=== PATIENT | female | born 1995 | race Caucasian/White ===

== ENCOUNTER → 2022-07-19 | Outpatient (CLI) | payer BC | END | disposition home or self-care (01) | LOC: LABWHC1 11:04 | PROVIDERS: ATTEND Obstetrics & Gynecology Obstetrics | DX: O20.0 Threatened abortion (principal); Z3A.00 Weeks of gestation of pregnancy not specified | CPT/HCPCS: 36415; 84702 ==

== ENCOUNTER 2023-03-03 06:13 | Inpatient (IN) | payer OTHER ==
[2023-03-03] MEDS ORDERED: miSOPROStoL 200 MCG TAB PO PRN (06:33)
[2023-03-03] MEDS ORDERED: CARBOPROST TROMETHAMINE 250 MCG/ML 1 ML AMP IM PRN (06:33)
[2023-03-03] MEDS ORDERED: METHYLERGONOVINE 0.2 MG/ML 1 ML AMP IM PRN (06:33)
[2023-03-03] MEDS ORDERED: TERBUTALINE 1 MG/ML VIAL SQ PRN (06:33)
[2023-03-03] MEDS ORDERED: TRANEXAMIC ACID IN NACL,ISO-OS 1,000 MG in EMPTY BAG 1 BAG IV PRN (06:33)
[2023-03-03] MEDS ORDERED: OXYTOCIN 10 UNIT/ML 1 ML VIAL IM PRN (06:33)
[2023-03-03] MEDS ORDERED: LIDOCAINE 0.5% (PF) 5 MG/ML (50 ML SDV) SQ PRN (06:33)
[2023-03-03] MEDS ORDERED: OXYTOCIN 30 UNITS/500 ML NS 30 UNIT in SALINE 1 500ML.BAG IV SCH ×2 (06:45→17:15)
[2023-03-03 07:19] LABS: Basophils # (A) 0.1 k/uL (0-0.2); Basophils % (A) 0 %; Eosinophils # (A) 0.1 k/uL (0-0.7); Eosinophils % (A) 1 %; HCT 36.4 % (34.0-46.0); HGB 12.1 gm/dL (11.4-16.0); Lymphocytes # (A) 1.9 k/uL (1.0-4.8); Lymphocytes % (A) 16 %; MCH 30.8 pg (25.0-35.0); MCHC 33.3 g/dL (31.0-37.0); MCV 92.7 fL (80.0-100.0); Mean Platelet Volume 8.6; Monocytes # (A) 0.5 k/uL (0-1.0); Monocytes % (A) 4 %; Neutrophils # (A) 8.8 k/uL (1.3-7.7); Neutrophils % (A) 76 %; Platelet Count 237 k/uL (150-450); RBC 3.93 m/uL (3.80-5.40); WBC 11.6 k/uL (3.8-10.6)
[2023-03-03] MEDS: LACTATED RINGERS 1,000 ML IV SCH ×2 (07:31→11:06)
[2023-03-03 07:50] VITALS: RESP 16
[2023-03-03] MEDS ORDERED: ROPIVACAINE 225 MG, fentaNYL (PF). 450 MCG in SODIUM CHLORIDE 0.9% 171 ML EPIDURAL ONE (11:11)
[2023-03-03] MEDS ORDERED: ROPIVACAINE 5 MG/ML 20 ML AMPULE ONE (11:16)
[2023-03-03] MEDS ORDERED: SODIUM CHLORIDE 0.9% 100 ML BAG ONE (11:16)
[2023-03-03] MEDS ORDERED: fentaNYL (PF) 50 MCG/ML 5 ML AMP ONE (11:16)
[2023-03-03] MEDS ORDERED: diphenhydrAMINE 25 MG CAP PO PRN (17:14)
[2023-03-03] MEDS ORDERED: diphenhydrAMINE 50 MG/ML 1 ML VIAL IVP PRN ×2 (17:14)
[2023-03-03] MEDS ORDERED: SIMETHICONE 80 MG CHEWABLE PO PRN (17:14)
[2023-03-03] MEDS ORDERED: diphenhydrAMINE 50 MG CAP PO PRN (17:14)
[2023-03-03] MEDS ORDERED: ACETAMINOPHEN TAB 325 MG TAB PO PRN (17:14)
[2023-03-03] MEDS ORDERED: LANOLIN CREAM 5 GM TUBE TOPICAL PRN (17:14)
[2023-03-03] MEDS ORDERED: BENZOCAINE/MENTHOL SPRAY 1 GM/SPRAY AEROSOL TOPICAL PRN (17:14)
[2023-03-03] MEDS ORDERED: HYDROCORTISONE 2.5% RECTAL CREAM 30 GM TUBE RECTAL PRN (17:14)
[2023-03-03] MEDS ORDERED: ZOLPIDEM 5 MG TAB PO PRN (17:14)
--- NOTE | 2023-03-03 17:18 | P.HPOB ---
History of Present Illness H&P Date: 03/03/23 Chief Complaint: IUP at 39 and one, single umbilical artery This is a 27-year-old 1 para 0 at 39 and one sevenths weeks that presents to labor and delivery for induction of labor. Patient has been receiving routine care with myself which has been essentially compensated. On 20 week ultrasound a single umbilical artery was appreciated, otherwise normal anatomy was appreciated. Patient does note good movement denies contractions loss of fluid or vaginal bleeding. On bloodwork this patient's blood type of O+, rubella status immune, hepatis B surface antigen negative, HIV negative , RPR nonreactive, group beta strep culture negative. Review of Systems Constitutional: Denies chills, Denies fatigue, Denies fever Ears, nose, mouth and throat: Denies headache Cardiovascular: Reports leg edema Respiratory: Denies dyspnea Gastrointestinal: Denies constipation, Denies diarrhea, Denies nausea, Denies vomiting Genitourinary: Reports Past Medical History Past Medical History: Thyroid Disorder History of Any Multi-Drug Resistant Organisms: None Reported Past Surgical History: No Surgical Hx Reported Past Anesthesia/Blood Transfusion Reactions: No Reported Reaction Past Psychological History: No Psychological Hx Reported Smoking Status: Never smoker Past Alcohol Use History: None Reported Past Drug Use History: None Reported - Past Family History Mother Family Medical History: No Reported History Medications and Allergies Home Medications Medication Instructions Recorded Confirmed Type Aspirin 1 tab PO DAILY 03/03/23 03/03/23 History Levothyroxine Sodium [Synthroid] 50 mcg PO DAILY 03/03/23 03/03/23 History Vit No.179/Iron/Folic 1 tab PO DAILY 03/03/23 03/03/23 History [ Tablet] Allergies Allergy/AdvReac Type Severity Reaction Status Date / Time No Known Allergies Allergy Verified 03/03/23 06:32 Exam Osteopathic Statement: *. No significant issues noted on an osteopathic structural exam other than those noted in the History and Physical/Consult. Vital Signs Temp Pulse Resp BP Pulse Ox 03/03/23 07:47 98.5 F 86 16 122/74 98 Intake and Output 03/02/23 03/03/23 03/03/23 22:59 06:59 14:59 Other: Weight 87.09 kg 87.09 kg Tardive physical exam is performed in this date and title investigator a well-nourished well-developed female in no acute distress, breathing is noted to be nonlabored, heart has a regular rhythm, abdomen is gravid, heart tones are noted to be category 1, she is irineo every 4 minutes, on cervical exam she is 3/70/-2 station amniotomy is performed and clear fluid was obtained. Results Result Diagrams: 03/03/23 06:33 Abnormal Lab Results - Last 24 Hours (Table) 03/03/23 Range/Units 06:33 WBC 11.6 H (3.8-10.6) k/uL Neutrophils # 8.8 H (1.3-7.7) k/uL Assessment and Plan (1) Term Current Visit: Yes Status: Acute Code(s): Z34.90 - ENCNTR FOR SUPRVSN OF NORMAL , UNSP, UNSP TRIMESTER SNOMED Code(s): 69044267 (2) Single umbilical artery Current Visit: Yes Status: Acute Code(s): Q27.0 - CONGENITAL ABSENCE AND HYPOPLASIA OF UMBILICAL ARTERY SNOMED Code(s): 261140020 Plan: 27-year-old at 39 and one sevenths weeks is admitted to labor and delivery for induction of labor. Pitocin induction of labor is begun per hospital protocol. Options for analgesia are discussed including Stadol, nitrous, epidural. Patient states she would like an epidural when appropriate.
--- NOTE | 2023-03-03 17:18 | P.PROBDLV ---
Vaginal Delivery Note - . Vaginal Delivery Note: 27 showed 1 para 0 that presented to labor and delivery at 39 and one sevenths weeks for scheduled induction of labor. Patient has been receiving routine care which is essentially uncomplicated. On routine 20 week ultrasound two-vessel cord was appreciated. Patient underwent and to testing along with growth ultrasounds. Patient was admitted to labor and delivery Pitocin induction of labor was begun per hospital protocol. Patient underwent amniotomy and clear fluid was obtained. Patient quickly became uncomfortable requested epidural placement. Epidural was placed without difficulty by the anesthesia department. Patient progressed through labor eventually feeling pressure and was noted to be completely dilated. Patient was placed in modified lithotomy position and began pushing. With excellent maternal effort patient had delivery of the head followed by the anterior/posterior shoulder, followed by the body. Spontaneous cry was noted at . The umbilical cord was doubly clamped and cut after two-minute delay. The placenta was delivered spontaneously intact with a three-vessel cord being noted. On inspection the patient's vaginal vault a secondary midline laceration was appreciated in addition to a hymenal laceration. These were repaired in usual fashion with 3-0 Rapide. Hemostasis was appreciated after repair. The bladder was drained for 100 mL of clear yellow urine. EBL 200ml The uterus noted be firm and below the umbilicus. All counts were correct 2. Patient and infant tolerated delivery well and are resting comfortably.
[2023-03-03] MEDS: IBUPROFEN 600 MG TAB PO SCH (18:06)
[2023-03-03] MEDS: SENNOSIDES-DOCUSATE SODIUM 1 EACH TAB PO SCH (21:06)
[2023-03-04] MEDS: IBUPROFEN 600 MG TAB PO SCH ×4 (03:32→13:36)
[2023-03-04] MEDS: SENNOSIDES-DOCUSATE SODIUM 1 EACH TAB PO SCH (09:10)
--- NOTE | 2023-03-04 10:09 | P.DS ---
Providers Date of admission: 03/03/23 06:13 Expected date of discharge: 03/04/23 Attending physician: Rena Posadas Primary care physician: [facility] Olivera - Discharge Diagnosis(es) (1) Term Current Visit: Yes Status: Acute (2) Single umbilical artery Current Visit: Yes Status: Acute (3) Status post normal vaginal delivery Current Visit: Yes Status: Acute Hospital Course: this is a 27-year-old 1 now para 1 that presented to labor and delivery at 39 and one sevenths weeks for induction of labor. Patient receiving routine care which is been essentially uncomplicated with the exception of a noted two-vessel cord noted on routine 20 week ultrasound. Patient was admitted to labor and delivery and Pitocin induction of labor was begun. Patient underwent amniotomy clear fluid was obtained. Patient progressed in labor eventually becoming uncomfortable requesting epidural placement. Epidural was placed without difficulty by the anesthesia department. Patient progressed through labor eventually be feeling pressure and was noted to be completely dilated. Patient was placed in modified lithotomy position and had a normal spontaneous vaginal delivery of a viable female infant, weight of 7 lbs. 1 oz. at 1654. Patient did sustain a second-degree midline laceration along with a hymenal tear during delivery. These lacerations were repaired in usual fashion with 3-0 Rapide. Hemostasis was noted after repair was complete. Patient's course has been uneventful. On this day #1 she is ambulating and voiding without difficulty. She is tolerating a regular diet without nausea or vomiting. She states her lochia is minimal to moderate. She is breast-feeding without difficulty. She would like discharge home at 24 hours if is discharged along with her. Patient Condition at Discharge: Good Plan - Discharge Summary New Discharge Prescriptions: No Action Vit No.179/Iron/Folic [ Tablet] 1 tab PO DAILY Levothyroxine Sodium [Synthroid] 50 mcg PO DAILY Aspirin 1 tab PO DAILY Discharge Medication List Aspirin 1 tab PO DAILY 03/03/23 [History] Levothyroxine Sodium [Synthroid] 50 mcg PO DAILY 03/03/23 [History] Vit No.179/Iron/Folic [ Tablet] 1 tab PO DAILY 03/03/23 [History] Follow up Appointment(s)/Referral(s): Rena Posadas DO [Doctor of Osteopathic Medicine] - 4 Weeks Patient Instructions/Handouts: Vaginal Delivery (DC), Vaginal Delivery (GEN) Activity/Diet/Wound Care/Special Instructions: no tub baths or intercourse until 6 weeks . Patient is counseled on bleeding precautions. Patient is to schedule a routine visit in 4 weeks. Should she have any concerns prior to this appointment she is urged to call the office for an appointment. Discharge Disposition: HOME SELF-CARE
[2023-03-04 15:26] VITALS: BP 121/70; PULSE 76; TEMP 98.1
== END 2023-03-04 17:30 | disposition home or self-care (01) | DRG 768 ==
LOC: 4FBP 06:13
PROVIDERS: ADMIT Obstetrics & Gynecology Obstetrics; ATTEND Obstetrics & Gynecology Obstetrics
PROC: 3E033VJ Introduction of Other Hormone into Peripheral Vein, Percutaneous Approach (ICD-10-PCS; principal; 2023-03-03)
PROC: 10E0XZZ Delivery of Products of Conception, External Approach (ICD-10-PCS; principal; 2023-03-03)
PROC: 10907ZC Drainage of Amniotic Fluid, Therapeutic from Products of Conception, Via Natural or Artificial Opening (ICD-10-PCS; principal; 2023-03-03)
PROC: 3E0DXGC Introduction of Other Therapeutic Substance into Mouth and Pharynx, External Approach (ICD-10-PCS; principal; 2023-03-03)
PROC: 0UQK7ZZ Repair Hymen, Via Natural or Artificial Opening (ICD-10-PCS; 2023-03-03)
PROC: 0KQM0ZZ Repair Perineum Muscle, Open Approach (ICD-10-PCS; 2023-03-03)
DX: O70.1 Second degree perineal laceration during delivery (principal); Z37.0 Single live birth; E07.9 Disorder of thyroid, unspecified; O99.284 Endocrine, nutritional and metabolic diseases complicating childbirth; Z3A.39 39 weeks gestation of pregnancy; Z28.310 Unvaccinated for COVID-19; Z79.82 Long term (current) use of aspirin; Z79.890 Hormone replacement therapy; Z79.899 Other long term (current) drug therapy
CPT/HCPCS: 85025; 86850; 86900; 86901; 88307

== ENCOUNTER 2025-05-09 06:00 | Inpatient (IN) | payer BC, OTHER ==
[2025-05-09] MEDS ORDERED: OXYTOCIN 10 UNIT/ML 1 ML VIAL IM PRN (06:46)
[2025-05-09] MEDS ORDERED: CARBOPROST TROMETHAMINE 250 MCG/ML 1 ML AMP IM PRN (06:46)
[2025-05-09] MEDS ORDERED: METHYLERGONOVINE 0.2 MG/ML 1 ML AMP IM PRN (06:46)
[2025-05-09] MEDS ORDERED: TRANEXAMIC 1,000 MG/100ML-NACL 1,000 MG in EMPTY BAG 1 BAG IV PRN (06:46)
[2025-05-09] MEDS ORDERED: TERBUTALINE 1 MG/ML VIAL SQ PRN (06:46)
[2025-05-09 06:57] LABS: Basophils # (A) 0.07 10*3/uL (0.00-0.10); Basophils % (A) 0.6 %; Eosinophils # (A) 0.09 10*3/uL (0.04-0.35); Eosinophils % (A) 0.8 %; HCT 36.5 % (37.2-46.3); HGB 12.3 g/dL (12.0-15.0); Lymphocytes # (A) 2.04 10*3/uL (0.90-5.00); Lymphocytes % (A) 18.7 %; MCH 30.6 pg (27.0-32.0); MCHC 33.7 g/dL (32.0-37.0); MCV 90.8 fL (80.0-97.0); Monocytes # (A) 0.54 10*3/uL (0.20-1.00); Monocytes % (A) 5.0 %; Neutrophils # (A) 7.92 10*3/uL (1.80-7.70); Neutrophils % (A) 72.8 %; Platelet Count 231 10*3/uL (140-440); RBC 4.02 10*6/uL (4.10-5.20); RDW 13.3 % (11.5-14.5); WBC 10.89 10*3/uL (4.50-10.00)
[2025-05-09] MEDS: LACTATED RINGERS 1,000 ML IV SCH (06:59)
[2025-05-09] MEDS: OXYTOCIN 30 UNITS/500 ML NS 30 UNIT in SALINE 1 500ML.BAG IV SCH (07:00)
[2025-05-09] MEDS ORDERED: SODIUM CHLORIDE 0.9% 250 ML BAG ONE (08:53)
[2025-05-09] MEDS ORDERED: fentaNYL (PF) 50 MCG/ML 5 ML AMP ONE (08:53)
[2025-05-09] MEDS ORDERED: ROPIVACAINE 5 MG/ML 30 ML VIAL ONE (08:53)
[2025-05-09] MEDS: LIDOCAINE 0.5% (PF) 5 MG/ML (50 ML SDV) SQ PRN (11:00)
[2025-05-09] MEDS ORDERED: diphenhydrAMINE 25 MG CAP PO PRN (11:18)
[2025-05-09] MEDS ORDERED: HYDROCORTISONE 2.5% RECTAL CREAM 30 GM TUBE RECTAL PRN (11:18)
[2025-05-09] MEDS ORDERED: SIMETHICONE 80 MG CHEWABLE PO PRN (11:18)
[2025-05-09] MEDS ORDERED: diphenhydrAMINE 50 MG/ML 1 ML VIAL IVP PRN ×2 (11:18)
[2025-05-09] MEDS ORDERED: BENZOCAINE/MENTHOL SPRAY 1 GM/SPRAY AEROSOL TOPICAL PRN (11:18)
[2025-05-09] MEDS ORDERED: ZOLPIDEM 5 MG TAB PO PRN (11:18)
[2025-05-09] MEDS ORDERED: LANOLIN CREAM 1 GM TUBE TOPICAL PRN (11:18)
--- NOTE | 2025-05-09 11:21 | P.PROBDLV ---
Vaginal Delivery Note - . Vaginal Delivery Note: Date of service 05/09/2025 Findings viable male infant delivered at 1054, weight of 7 pounds 10.9 ounces, Apgars of 9 and 9 at 1 and 5 minutes respectively This is a 30-year-old G2, P1 at 39-3/7 weeks who presents to labor and delivery for induction of labor. Patient was admitted to labor and delivery and Pitocin induction of labor was begun. Amniotomy was performed clear fluid was obtained. Patient became uncomfortable and requested epidural. Epidural was placed without difficulty by the anesthesia department. Patient made good progress for complete dilation. Once completely dilated patient began pushing and had a normal spontaneous vaginal delivery of a viable male at 1054, weight of 7 pounds 10.9 ounces, Apgars of 9 and 9 at 1 and 5 minutes respectively. After 2- minute delay the umbilical cord was doubly clamped and cut placenta was delivere d spontaneously intact with a three-vessel cord being noted. On inspection the patient's vaginal vault a midline second-degree laceration was appreciated, this was injected with lidocaine and repaired in the usual fashion with 3-0 Rapide. Uterus was noted to be firm and below the umbilicus at this time. All counts noted be correct x 2. Patient and infant tolerated delivery well and are resting comfortably.
--- NOTE | 2025-05-09 11:22 | P.HPOB ---
History of Present Illness H&P Date: 05/09/25 Chief Complaint: Term This is a 30-year-old G2, P1 at 39+ weeks that presents to labor and delivery for scheduled induction of labor. EDC of 05/13 based on good dating parameters. Patient has been receiving routine care which has been essentially uncomplicated Patient states she has been irineo irregularly for the last 24 hours. Patient denies vaginal bleeding or loss of fluid On blood work this patient is a blood type of oh positive, rubella status immune, hepatitis B surface engine negative, HIV negative, RPR is nonreactive, grew beta strep culture negative. Review of Systems Constitutional: Denies chills, Denies fatigue, Denies fever Ears, nose, mouth and throat: Denies headache Cardiovascular: Reports leg edema Respiratory: Denies dyspnea Gastrointestinal: Denies nausea, Denies vomiting Genitourinary: Reports Past Medical History Past Medical History: Thyroid Disorder History of Any Multi-Drug Resistant Organisms: None Reported Past Surgical History: No Surgical Hx Reported Past Anesthesia/Blood Transfusion Reactions: No Reported Reaction Past Psychological History: No Psychological Hx Reported Smoking Status: Never smoker Past Alcohol Use History: None Reported Past Drug Use History: None Reported - Past Family History Mother Family Medical History: No Reported History Medications and Allergies Home Medications Medication Instructions Recorded Confirmed Type Aspirin 1 tab PO DAILY 03/03/23 05/09/25 History Levothyroxine Sodium [Synthroid] 50 mcg PO DAILY 03/03/23 05/09/25 History Vit No.179/Iron/Folic 1 tab PO DAILY 03/03/23 05/09/25 History [ Tablet] Allergies Allergy/AdvReac Type Severity Reaction Status Date / Time No Known Allergies Allergy Verified 03/03/23 06:32 Exam Osteopathic Statement: *. No significant issues noted on an osteopathic structural exam other than those noted in the History and Physical/Consult. Intake and Output 05/08/25 05/09/25 05/09/25 22:59 06:59 14:59 Other: Weight 95.254 kg Targeted physical exam is performed this date in general is well-nourished well- developed female in no acute distress, breathing is nonlabored, heart has a regular rate and rhythm, abdomen is gravid, on cervical exam she is 5/100/-1 station amniotomy was performed and scant fluid was obtained. heart tones noted to be category 1 and she is irineo every 2 minutes. She is comfortable with an epidural. Results Result Diagrams: 05/09/25 06:40 Abnormal Lab Results - Last 24 Hours (Table) 05/09/25 Range/Units 06:40 WBC 10.89 H (4.50-10.00) 10*3/uL RBC 4.02 L (4.10-5.20) 10*6/uL Hct 36.5 L (37.2-46.3) % Immature Gran # 0.23 H (0.00-0.04) 10*3/uL Neutrophils # 7.92 H (1.80-7.70) 10*3/uL Assessment and Plan (1) Term Current Visit: No Status: Acute Code(s): Z34.90 - ENCNTR FOR SUPRVSN OF NORMAL , UNSP, UNSP TRIMESTER SNOMED Code(s): 90403158 Plan: Admit to labor and delivery Pitocin augmentation of labor Patient did receive an epidural prior to my arrival Anticipate spontaneous vaginal delivery
[2025-05-09] MEDS: ACETAMINOPHEN TAB 500 MG TAB PO SCH (16:07)
[2025-05-09] MEDS: IBUPROFEN 800 MG TAB PO SCH (16:07)
[2025-05-09] MEDS: SENNOSIDES-DOCUSATE SODIUM 1 EACH TAB PO SCH (19:58)
[2025-05-09 20:18] VITALS: RESP 16
[2025-05-10] MEDS: LEVOTHYROXINE 25 MCG TAB PO SCH (05:14)
[2025-05-10 08:38] VITALS: BP 117/73; PULSE 94; TEMP 98.3
--- NOTE | 2025-05-10 09:16 | P.DS ---
Providers Date of admission: 05/09/25 06:21 Expected date of discharge: 05/10/25 (\) Attending physician: Rena Posadas Primary care physician: Stated None - Discharge Diagnosis(es) (1) Term Current Visit: No Status: Acute (2) Status post normal vaginal delivery Current Visit: No Status: Acute (3) Obstetrical laceration, second degree Current Visit: Yes Status: Acute Hospital Course: 30-year-old G2 now P2 that presented to labor and delivery at 39-3/7 weeks for scheduled induction of labor. Patient had been receiving routine care which has been essentially uncomplicated. For full details and the patient please the dictated history and physical. Patient was admitted to labor and delivery and Pitocin induction of labor was begun. Amniotomy was formed clear fluid was obtained. Patient did receive an epidural during the labor process. Patient had progressed to complete began pushing and had a normal spontaneous vaginal delivery of a viable male at 1054, weight of 7 pounds 10.9 ounces, Apgars of 9 and 9 at 1 and 5 minutes respectively. Patient did sustain a second-degree midline laceration during delivery. This was repaired in the usual fashion. Patient's course has been uneventful. This day #1 she is ambulating and voiding without difficulty. She is tolerating regular diet without nausea or vomiting. States her pain is well-controlled. She denies concerns. She would like discharge home at 24 hours. Patient Condition at Discharge: Good Plan - Discharge Summary New Discharge Prescriptions: No Action Vit No.179/Iron/Folic [ Tablet] 1 tab PO DAILY Levothyroxine Sodium [Synthroid] 50 mcg PO DAILY Aspirin 1 tab PO DAILY Discharge Medication List Aspirin 1 tab PO DAILY 03/03/23 [History] Levothyroxine Sodium [Synthroid] 50 mcg PO DAILY 03/03/23 [History] Vit No.179/Iron/Folic [ Tablet] 1 tab PO DAILY 03/03/23 [History] Follow up Appointment(s)/Referral(s): Rena Posadas DO [Doctor of Osteopathic Medicine] - 06/15/25 10:45 am Patient Instructions/Handouts: Vaginal Delivery (DC), Vaginal Delivery (GEN) Activity/Diet/Wound Care/Special Instructions: No tub baths or intercourse until 6 weeks . [id number] ibuprofen 600 mg or 3 tablets every 6 hours as needed for pain. Routine check at 6 weeks. Should she have any concerns prior to this appointment she is urged to call the office and be seen prior Discharge Disposition: HOME SELF-CARE
== END 2025-05-10 13:10 | disposition home or self-care (01) | DRG 807 ==
LOC: 4FBP 06:21
PROVIDERS: ADMIT Obstetrics & Gynecology Obstetrics; ATTEND Obstetrics & Gynecology Obstetrics
PROC: 3E033VJ Introduction of Other Hormone into Peripheral Vein, Percutaneous Approach (ICD-10-PCS; principal; 2025-05-09)
PROC: 10E0XZZ Delivery of Products of Conception, External Approach (ICD-10-PCS; principal; 2025-05-09)
PROC: 0KQM0ZZ Repair Perineum Muscle, Open Approach (ICD-10-PCS; principal; 2025-05-09)
PROC: 10907ZC Drainage of Amniotic Fluid, Therapeutic from Products of Conception, Via Natural or Artificial Opening (ICD-10-PCS; principal; 2025-05-09)
DX: O99.284 Endocrine, nutritional and metabolic diseases complicating childbirth (principal); Z37.0 Single live birth; E07.9 Disorder of thyroid, unspecified; O70.1 Second degree perineal laceration during delivery; Z79.890 Hormone replacement therapy; Z79.82 Long term (current) use of aspirin; Z3A.39 39 weeks gestation of pregnancy
CPT/HCPCS: 85025; 86850; 86900; 86901